=== PATIENT | male | born 1975 | race Asian ===

== ENCOUNTER 2019-09-07 07:13 | Day surgery (SDC) | payer BC, OTHER ==
[2019-09-07 07:27] VITALS: BMI 24.3
[2019-09-07] MEDS ORDERED: ACETAMINOPHEN 325 MG TABLET (FP) PO PRN (07:51)
[2019-09-07] MEDS ORDERED: oxyCODONE HCL 5 MG TABLET PO PRN (07:51)
[2019-09-07] MEDS ORDERED: morphine SULFATE 4 MG/ML VIAL IVPB PRN (07:51)
--- NOTE | 2019-09-07 07:53 | PDOC ---
History of Present Illness - General Chief Complaint: Pain, Acute Stated Complaint: LOWER ABD PAIN Time Seen by Provider: 09/07/19 07:22 - History of Present Illness Initial Comments: 09/07/19 07:47 Complaint: Abdominal pain HPI: Patient states that his left inguinal hernia has become more swollen and painful. It is worse with standing and walking. There is been no nausea vomiting or change in bowel habits. Review of systems: No fever/chills, cough, chest pain, shortness of breath, nausea, vomiting, diarrhea, urinary tract symptoms, focal neurologic symptoms, unsteadiness of gait. Remainder of systems reviewed and negative Past medical history: Mild psoriasis, seasonal allergies, and left inguinal hernia which was previously repaired in 2007 Social history: Stable home and family, no tobacco alcohol or drugs Family history: Mother with diabetes, father with coronary artery disease, high blood pressure, elevated cholesterol Physical exam: Alert and oriented well-developed well-nourished mild distress due to left inguinal pain, cooperative Afebrile, vital signs normal HEENT normal Neck supple without bruit mass or nodes Chest clear CV regular without murmur rub or gallop Abdomen nondistended. Bowel sounds normal. Soft without mass tenderness organomegaly : There is a large left inguinal hernia that is moderately tender to palpation , irreducible. Possibly incarcerated. Impression: Incarcerated left inguinal hernia Plan: Admit to Dr. Land for surgical consultation and possible surgical treatment. Past History - Past Medical History Allergies/Adverse Reactions: Allergies Allergy/AdvReac Type Severity Reaction Status Date / Time No Known Allergies Allergy Verified 09/07/19 07:52 COPD: No - Psycho Social/Smoking Cessation Hx Smoking History: Never smoked Hx Alcohol Use: No Drug/Substance Use Hx: No *Physical Exam - Vital Signs Last Vital Signs Temp Pulse Resp BP Pulse Ox 98 F 91 H 18 117/85 100 09/07/19 07:14 09/07/19 07:14 09/07/19 07:14 09/07/19 07:14 09/07/19 07:14 Medical Decision Making - Medical Decision Making 09/07/19 07:50 Dr. Land evaluated patient in ER, will admit for surgery. Discharge - Discharge Information Problems reviewed: Yes Clinical Impression/Diagnosis: Incarcerated left inguinal hernia - Admission Yes - Follow up/Referral - Patient Discharge Instructions - Post Discharge Activity
[2019-09-07 08:35] LABS: BASO % 0.4 % (0-2.0); HEMOGLOBIN 14.5 GM/dl (11.7-16.9); WHITE BLOOD COUNT 11.2 K/mm3 (4.0-10.8)
[2019-09-07 08:38] LABS: EOS % 2.9 % (0-4.5); LYMPH % 12.4 % (8-40); MEAN CELL VOLUME 81.8 fl (80-96); MONO % 7.7 % (3.8-10.2); NEUT % 76.6 % (42.8-82.8); PLATELET COUNT 247 K/MM3 (134-434); RBC 5.38 M/mm3 (4.00-5.60); RDW 13.4 % (11.9-15.9)
[2019-09-07 08:40] LABS: ALBUMIN 3.9 g/dl (3.4-5.0); BILIRUBIN,TOTAL 0.6 mg/dl (0.2-1); CALCIUM 9.2 mg/dl (8.5-10); CREATININE 1.1 mg/dl (0.55-1.3); POTASSIUM 4.2 mmol/L (3.5-5.1); TOT PROT 7.5 g/dl (6.4-8.2)
[2019-09-07 08:49] LABS: INR 1.43 (0.82-1.09); PROTHROMBIN TIME (PATIENT) 15.9 SEC (10.2-13.0)
[2019-09-07] MEDS: SODIUM CHLORIDE 1,000 ML IV SCH (08:51)
[2019-09-07] MEDS ORDERED: CEFAZOLIN 1 GM/D5W 1 GM/50 ML BAG IVPB ONE (09:00)
[2019-09-07] MEDS ORDERED: MIDAZOLAM HCL 2 MG/2 ML SINGLE DOSE VIAL ONE (10:37)
[2019-09-07] MEDS ORDERED: ROPIVACAINE HCL 0.5% 30ML VIAL ONE (10:37)
[2019-09-07] MEDS ORDERED: fentaNYL CITRATE 250 MCG/5 ML VIAL ONE (11:18)
[2019-09-07] MEDS ORDERED: ROCURONIUM BROMIDE 50 MG/5 ML SYRINGE ONE ×2 (11:18→11:42)
[2019-09-07] MEDS ORDERED: ceFAZolin SODIUM 1 GM VIAL ONE (11:28)
[2019-09-07] MEDS ORDERED: DEXAMETHASONE SOD PHOSPHATE 4 MG/1 ML VIAL ONE (11:36)
[2019-09-07] MEDS ORDERED: ONDANSETRON 4 MG/2 ML VIAL ONE (11:36)
[2019-09-07] MEDS ORDERED: KETOROLAC TROMETHAMINE 30 MG/1 ML VIAL ONE (11:36)
[2019-09-07] MEDS ORDERED: GLYCOPYRROLATE 0.2 MG/1 ML VIAL ONE (11:42)
[2019-09-07] MEDS ORDERED: NEOSTIGMINE METHYLSULFATE 0.5 MG/ML - 10 ML MDV ONE (11:43)
[2019-09-07] MEDS: PROMETHAZINE HCL 25 MG/1 ML VIAL ONE ×2 (14:25→14:52)
[2019-09-07] MEDS ORDERED: PANTOPRAZOLE SODIUM 40 MG VIAL ONE (14:27)
[2019-09-07] MEDS: PANTOPRAZOLE SODIUM 40 MG VIAL IVPUSH SCH (14:35)
[2019-09-07 16:13] LABS: INR 1.65 (0.82-1.09); PROTHROMBIN TIME (PATIENT) 18.3 SEC (10.2-13.0)
[2019-09-07 16:18] LABS: ALBUMIN 2.8 g/dl (3.4-5.0); BILIRUBIN,TOTAL 0.7 mg/dl (0.2-1); CALCIUM 7.5 mg/dl (8.5-10); POTASSIUM 3.7 mmol/L (3.5-5.1); TOT PROT 5.3 g/dl (6.4-8.2)
[2019-09-07 16:46] LABS: HEMATOCRIT 32.8 % (35.4-49); HEMOGLOBIN 10.8 GM/dl (11.7-16.9); MCH 27.3 pg (25.7-33.7); MCHC 32.9 g/dl (32.0-35.9); MEAN CELL VOLUME 82.9 fl (80-96); MEAN PLT VOLUME 9.3 fl (7.5-11.1); PLATELET COUNT 233 K/MM3 (134-434); RBC 3.96 M/mm3 (4.00-5.60); RDW 13.3 % (11.9-15.9)
--- NOTE | 2019-09-07 21:23 | OP ---
DATE OF OPERATION: 09/07/2019 PREOPERATIVE DIAGNOSIS: Chronically incarcerated, recurrent left inguinal/scrotal hernia. POSTOPERATIVE DIAGNOSES: Chronically incarcerated, recurrent left inguinal/scrotal hernia (incarcerated direct component), right indirect inguinal hernia. PROCEDURE: Laparoscopic repair of incarcerated, recurrent left inguinal hernia with mesh; laparoscopic repair of right inguinal hernia with mesh. SURGEON: Jake Dorantes MD LEARNING SOLUTIONS SPECIALIST: Deepak Smalls MD ANESTHESIA: Boom Aaron MD (general). ESTIMATED BLOOD LOSS: Minimal. SPECIMEN: None. INDICATION FOR PROCEDURE: This is a 44-year-old gentleman who underwent an open left inguinal hernia repair approximately 12 years ago with mesh. He now has a large recurrence and wishes to have this repaired. Patient identified and appropriately positioned on the operating table. After the placement of general anesthesia, the abdomen was prepped and draped in the usual sterile fashion with ChloraPrep. An infraumbilical incision was made, deepened through the subcutaneous tissue. The fascia of the rectus muscle on the left identified, divided sharply. The muscles split under direct vision. A dissector balloon, followed by a structural balloon placed. Also, under direct vision, a suprapubic 11-mm port placed. Following placement of the laparoscope, it was obvious this gentleman had a large, recurrent, direct inguinal hernia. This sac was densely adherent to the mesh, and therefore, a 5-mm right lower quadrant port was placed under direct vision. The sac had to be dissected off the mesh and ultimately had to be cut through to allow separation from the mesh. Once the sac was completely reduced, the sac was reapproximated with a [employer] Surgical clip airplane captain. The cord structures were identified more laterally. The cord structures were isolated. There was no indirect component. A 5.5 x 6 piece of Versatex mesh was keel placed through the suprapubic port site. The mesh was wrapped around the cord structures laterally to reconstruct the internal ring. The mesh covered the direct defect well and was anchored to the anterior abdominal wall. Medially, the mesh itself was anchored to pubic tubercle and Markos ligament as well. Upon completion of the left side, attention was then subsequently focused on the right side. On the right side, he was also noted to have a direct inguinal hernia of much smaller size. The direct hernia reduced back into the preperitoneal space. There was no true indirect component. Another 5.5 x 6 piece of Versatex mesh was keel placed through the suprapubic port site. The mesh wrapped around the cord structures laterally to reconstruct the internal ring. Laterally, the mesh anchored to the anterior abdominal wall and lateral abdominal wall. Medially, the mesh well overlapped in the midline, anchored to the anterior abdominal wall, pubic tubercle, and Markos ligament. The preperitoneal space was desufflated under direct vision. The operative field examined, noted to be hemostatic. The fascia at the port sites reapproximated with 3-0 Vicryl suture and skin closed with 4-0 Biosyn, followed by Dermabond. At the conclusion of this case, sponge and needle counts were correct. ATTESTATION: A brief operative note handwritten on the preprinted form. [facility] queried prior to giving any narcotics. JAKE DORANTES M.D. [id number]
[2019-09-08 07:50] VITALS: BP 110/56; PULSE 101; TEMP 98.2
[2019-09-08 09:00] LABS: EOS % 0.1 % (0-4.5); HEMATOCRIT 29.9 % (35.4-49); HEMOGLOBIN 9.7 GM/dl (11.7-16.9); LYMPH % 16.9 % (8-40); MCH 26.6 pg (25.7-33.7); MCHC 32.3 g/dl (32.0-35.9); MEAN CELL VOLUME 82.3 fl (80-96); MEAN PLT VOLUME 8.9 fl (7.5-11.1); MONO % 13.5 % (3.8-10.2); NEUT % 69.5 % (42.8-82.8); PLATELET COUNT 254 K/MM3 (134-434); RBC 3.64 M/mm3 (4.00-5.60); RDW 13.7 % (11.9-15.9); WHITE BLOOD COUNT 11.1 K/mm3 (4.0-10.8)
[2019-09-08] MEDS: SODIUM CHLORIDE 1,000 ML IV SCH (09:28)
[2019-09-08] MEDS: PANTOPRAZOLE SODIUM 40 MG VIAL IVPUSH SCH (09:28)
[2019-09-08] MEDS ORDERED: ENOXAPARIN NA (PORCINE) 40 MG/0.4 ML DISP.SYRIN SQ SCH (10:00)
--- NOTE | 2019-09-08 10:31 | PN ---
Progress Note (short form) - Note Progress Note: Anesthesia Post op/ Pain Pt seen and examined S:Alert and awake comfortable O: Vital Signs Temperature 98.2 F 09/08/19 06:55 Pulse Rate 101 H 09/08/19 06:55 Respiratory Rate 17 09/08/19 06:55 Blood Pressure 110/56 L 09/08/19 06:55 O2 Sat by Pulse Oximetry (%) 97 09/08/19 06:55 CBC, BMP 09/08/19 06:35 09/07/19 15:30 A/P Current Active Problems Incarcerated left inguinal hernia (Acute) s/p lap hernia repair Doing well post op Continue current care Mike Anaya MD
--- NOTE | 2019-09-08 11:59 | DS ---
DATE OF ADMISSION: 09/07/2019 DATE OF DISCHARGE: 09/08/2019 ADMITTING DIAGNOSIS: Incarcerated, recurrent left inguinal/scrotal hernia. DISCHARGE DIAGNOSES: Incarcerated, recurrent left inguinal/scrotal hernia. In addition, a right indirect inguinal hernia as well as postoperative hypotension and nausea. BRIEF HISTORY: This is a 44-year-old male with a recurrent, incarcerated left inguinal hernia. Because of its incarceration and severe symptoms, the patient presented to [facility] on September 06. He was admitted for urgent surgical management. Please reference Dr. Land's operative report from September 06, where he was able to laparoscopically repair this recurrent, incarcerated left inguinal hernia. In addition, he had an incidental right inguinal hernia which was repaired at the same time. Postoperatively, he developed nausea and hypotension which was felt to be related to anesthesia and vasovagal in nature. He was treated with intravenous fluid boluses. He had blood work done which showed an initial drop in hemoglobin from 14 down to 10.8, but there was low suspicion of active bleed. Overnight, his symptoms improved. His blood pressure improved. He was able to ambulate, tolerate regular diet, and voiding. At the time of his discharge, he has expected scrotal swelling. He has no fever. His blood pressure is 110/56. A morning CBC is still pending. Assuming that the hemoglobin has not dropped further, he will be expected to be discharged home today. He is okay to shower, okay to walk, okay to drive. He will not lift more than 20 pounds. He will go home on a regular diet. He has a new prescription for Percocet which he will take as needed for pain. He can resume his usual home medications of antihistamines. He will follow with Dr. Land in approximately 2 weeks' time for his postoperative check. He will apply ice to his scrotum as well as scrotal support. DO MILAN HOPSON/[id number]
== END 2019-09-08 11:46 | disposition home or self-care (01) ==
LOC: FER 07:13 → UNDOADMIN 07:54 → FM/S 07:54 → UNDOADMIN 14:50 → FM/S 14:50 → FASUSAT 14:50 → FM/S 17:34 → FASUSAT 09-08 11:46
PROVIDERS: ATTEND Surgery
PROC: 0YUA4JZ Supplement Bilateral Inguinal Region with Synthetic Substitute, Percutaneous Endoscopic Approach (ICD-10-PCS; principal; 2019-09-07 10:00)
DX: K40.31 Unilateral inguinal hernia, with obstruction, without gangrene, recurrent (principal); K40.90 Unilateral inguinal hernia, without obstruction or gangrene, not specified as recurrent; I95.9 Hypotension, unspecified; R11.0 Nausea
CPT/HCPCS: 36415; 71045-TC-FY; 80053; 85025; 85027; 85610; 86850; 86900; 86901; 94760; 99285-25; J7030